=== PATIENT | female | born 1995 | race African-American/Black ===

== ENCOUNTER 2022-07-09 12:13 | Day surgery (SDC) | payer OTHER ==
[2022-06-30 15:51] VITALS: BMI 40.7
[2022-07-09 14:03] VITALS: RESP 14; TEMP 98
[2022-07-09 14:16] VITALS: BP 122/74; PULSE 95
== END 2022-07-09 14:20 | disposition home or self-care (01) ==
LOC: FASU-ENDO 12:13
PROVIDERS: ATTEND Internal Medicine Gastroenterology
PROC: 0DB78ZX Excision of Stomach, Pylorus, Via Natural or Artificial Opening Endoscopic, Diagnostic (ICD-10-PCS; 2022-07-09)
PROC: 0DB48ZX Excision of Esophagogastric Junction, Via Natural or Artificial Opening Endoscopic, Diagnostic (ICD-10-PCS; 2022-07-09)
PROC: 0DB98ZX Excision of Duodenum, Via Natural or Artificial Opening Endoscopic, Diagnostic (ICD-10-PCS; principal; 2022-07-09 13:42)
DX: K29.70 Gastritis, unspecified, without bleeding (principal); K22.89 Other specified disease of esophagus
CPT/HCPCS: 81025; 88305-TC; 88342-TC

== ENCOUNTER 2022-10-08 13:19 | Day surgery (SDC) | payer OTHER ==
[2022-09-15 13:01] VITALS: BMI 40.7
[2022-10-08 16:50] VITALS: PULSE 90; RESP 16; TEMP 97.8
[2022-10-08 16:52] VITALS: BP 101/64
== END 2022-10-08 16:30 | disposition home or self-care (01) ==
LOC: FASU-ENDO 13:19
PROVIDERS: ATTEND Internal Medicine Gastroenterology
PROC: 0DBL8ZX Excision of Transverse Colon, Via Natural or Artificial Opening Endoscopic, Diagnostic (ICD-10-PCS; 2022-10-08)
PROC: 0DBN8ZX Excision of Sigmoid Colon, Via Natural or Artificial Opening Endoscopic, Diagnostic (ICD-10-PCS; 2022-10-08)
PROC: 0DBM8ZX Excision of Descending Colon, Via Natural or Artificial Opening Endoscopic, Diagnostic (ICD-10-PCS; 2022-10-08)
PROC: 0DBK8ZX Excision of Ascending Colon, Via Natural or Artificial Opening Endoscopic, Diagnostic (ICD-10-PCS; principal; 2022-10-08 15:07)
DX: K63.5 Polyp of colon (principal); K64.1 Second degree hemorrhoids
CPT/HCPCS: 84703

== ENCOUNTER 2025-01-01 13:47 | Day surgery (SDC) | payer OTHER, MEDICARE ==
[2024-12-27 15:48] VITALS: BMI 33.6
[2025-01-01] MEDS ORDERED: PROPOFOL 40 ML ONE (14:48)
[2025-01-01 15:50] VITALS: TEMP 98
[2025-01-01 15:51] VITALS: BP 103/52; PULSE 97; RESP 19
== END 2025-01-01 15:52 | disposition home or self-care (01) ==
LOC: FASU-ENDO 13:47
PROVIDERS: ATTEND Internal Medicine Gastroenterology
PROC: 0DBL8ZX Excision of Transverse Colon, Via Natural or Artificial Opening Endoscopic, Diagnostic (ICD-10-PCS; 2025-01-01)
PROC: 0DBP8ZX Excision of Rectum, Via Natural or Artificial Opening Endoscopic, Diagnostic (ICD-10-PCS; 2025-01-01)
PROC: 0DBF8ZX Excision of Right Large Intestine, Via Natural or Artificial Opening Endoscopic, Diagnostic (ICD-10-PCS; 2025-01-01)
PROC: 0DBG8ZX Excision of Left Large Intestine, Via Natural or Artificial Opening Endoscopic, Diagnostic (ICD-10-PCS; principal; 2025-01-01 15:08)
DX: K92.1 Melena (principal); K64.1 Second degree hemorrhoids; R19.7 Diarrhea, unspecified
CPT/HCPCS: 88305-TC